=== PATIENT | female | born 1955 | race Caucasian/White ===

== ENCOUNTER 2020-12-13 00:21 | Emergency (ER) | payer BC ==
[~2020-12-13] VITALS: Ht 170.2 cm; Wt 80.7 kg
--- NOTE | 2020-12-13 00:35 | NUR ---
BIB SELF C/O ALLERGIC REACTION AT 1500 AFTER TAKING PRESCRIBED VICODIN FOR SCIATICA FLARE UP. DESCRIBES THE REACTION SWELLING OF THE LIPS AND TONGUE WITH DIFFICULTY SWALLOWING DENIES SOB OR C/P. STATES SHE FEELS IF THE SWELLING IS STILL PRESENT UPON EXAM NO SIGNIFICANT SWELLING NOTED. PATIENT IS BREATHING EVEN AND UNLABORED PLACED ON THE MONITOR AND IS SATTING 99% ON RA. MD WAS AT BEDSIDE FOR EVAL.
[2020-12-13 00:57] VITALS: BP 133/77
--- NOTE | 2020-12-13 00:57 | NUR ---
Patient discharged to home in stable condition. Written and verbal after care instructions given. Patient verbalizes understanding of instruction.
== END 2020-12-13 01:09 | disposition home or self-care (01) ==
LOC: ER 00:26
DX: K13.0 Diseases of lips (principal); T40.2X5A Adverse effect of other opioids, initial encounter; Z71.1 Person with feared health complaint in whom no diagnosis is made; Z88.6 Allergy status to analgesic agent; Y92.89 Other specified places as the place of occurrence of the external cause